=== PATIENT | male | born 1985 | race Caucasian/White ===

== ENCOUNTER 2018-01-17 17:11 | Emergency (ER) | payer OTHER ==
[~2018-01-17] VITALS: Ht 185.4 cm; Wt 90.7 kg
[2018-01-17 17:15] VITALS: BP 140/95
[2018-01-17] MEDS ORDERED: Sodium Chloride 500ML 500 ML IV ONE (17:21)
[2018-01-17 17:43] LABS: EOSINOPHILS % (AUTO) 1.4 % (0.0-3.0); HEMATOCRIT 40.2 % (42.0-52.0); HEMOGLOBIN 14.2 G/DL (14.2-18.0); LYMPHOCYTES % (AUTO) 35.2 % (20.0-45.0); MEAN CORPUSCULAR VOLUME 85 FL (80-99); NEUTROPHILS % (AUTO) 54.4 % (45.0-75.0); PLATELET COUNT 206 K/UL (150-450); RED BLOOD COUNT 4.74 M/UL (4.70-6.10); RED CELL DISTRIBUTION WIDTH 10.6 % (11.6-14.8); WHITE BLOOD COUNT 6.5 K/UL (4.8-10.8)
--- NOTE | 2018-01-17 17:46 | Emergency Room Report ---
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 Patient has had 2 episodes of atrial fibrillation including cardioversion with medication and also including electric cardioversion Patient is set for a another ablation in the of January At this time denies any chest pain denies any back or flank pain Patient was on Eliquis previously however not at this time Allergies: Coded Allergies: GRASS POLLEN (Verified Allergy, Mild, Hives, 01/17/18) Patient History Past Medical History: see triage record Pertinent Family History: none Reviewed Nursing Documentation: PMH: Agreed; PSxH: Agreed Nursing Documentation-PMH Past Medical History: No History, Except For Hx Cardiac Problems: Yes - WPW Review of Systems All Other Systems: negative except mentioned in HPI Physical Exam Vital Signs Date Time Temp Pulse Resp B/P (MAP) Pulse Ox O2 Delivery O2 Flow Rate FiO2 01/17/18 17:05 98.3 120 18 140/90 99 Room Air 98.2 Sp02 EP Interpretation: reviewed, normal General Appearance: well appearing, no apparent distress Head: normocephalic, atraumatic Eyes: bilateral eye PERRL, bilateral eye EOMI ENT: hearing grossly normal, normal pharynx, TMs + canals normal, uvula midline Neck: full range of motion, supple, no meningismus, no bony tend Respiratory: lungs clear, normal breath sounds, no rhonchi, no respiratory distress, no retraction, no accessory muscle use Cardiovascular #1: normal peripheral pulses, no edema, no gallop, no JVD, no murmur, irregularly irregular Gastrointestinal: normal bowel sounds, non tender, soft, no mass, no organomegaly, non-distended, no guarding, no hernia, no pulsatile mass, no rebound Genitourinary: no CVA tenderness Musculoskeletal: normal inspection Neurologic: oriented x3, responsive, 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 Guillen [phone] Patient remains appropriate on the vehicle monitor technician, heart rate ranges between 80 and 95 Patient remains asymptomatic at this time was given a dose of Eliquis After discussion with the patient's electro- housing manager, he recommends the patient initiated on xarelto/versus Eliquis And he will follow closely with him Given that the patient is rate controlled without any medication Given that he has had a history of atrial fibrillation Cardioversion is not indicated at this time Patient observed throughout his stay and at this time is disposition for close follow-up per recommendations Labs Test 01/17/18 17:29 White Blood Count 6.5 K/UL (4.8-10.8) Red Blood Count 4.74 M/UL (4.70-6.10) Hemoglobin 14.2 G/DL (14.2-18.0) Hematocrit 40.2 % (42.0-52.0) Mean Corpuscular Volume 85 FL (80-99) Mean Corpuscular Hemoglobin 30.1 PG (27.0-31.0) Mean Corpuscular Hemoglobin Concent 35.4 G/DL (32.0-36.0) Red Cell Distribution Width 10.6 % (11.6-14.8) Platelet Count 206 K/UL (150-450) Mean Platelet Volume 6.2 FL (6.5-10.1) Neutrophils (%) (Auto) 54.4 % (45.0-75.0) Lymphocytes (%) (Auto) 35.2 % (20.0-45.0) Monocytes (%) (Auto) 8.0 % (1.0-10.0) Eosinophils (%) (Auto) 1.4 % (0.0-3.0) Basophils (%) (Auto) 1.0 % (0.0-2.0) Prothrombin Time 10.5 SEC (9.30-11.50) Prothromb Time International Ratio 1.0 (0.9-1.1) Activated Partial Thromboplast Time 25 SEC (23-33) Sodium Level 142 MMOL/L (136-145) Potassium Level 3.4 MMOL/L (3.5-5.1) Chloride Level 105 MMOL/L (98-107) Carbon Dioxide Level 27 MMOL/L (21-32) Anion Gap 11 mmol/L (5-15) Blood Urea Nitrogen 12 mg/dL (7-18) Creatinine 1.2 MG/DL (0.55-1.30) Estimat Glomerular Filtration Rate > 60 mL/min (>60) Glucose Level 128 MG/DL (74-106) Calcium Level 8.8 MG/DL (8.5-10.1) Total Bilirubin 0.4 MG/DL (0.2-1.0) Aspartate Amino Transf (AST/SGOT) 12 U/L (15-37) Alanine Aminotransferase (ALT/SGPT) 26 U/L (12-78) Alkaline Phosphatase 60 U/L (46-116) Total Creatine Kinase 69 U/L (26-308) Creatine Kinase MB 0.6 NG/ML (0.0-3.6) Creatine Kinase MB Relative Index 0.8 Troponin I 0.000 ng/mL (0.000-0.056) Total Protein 7.5 G/DL (6.4-8.2) Albumin 4.2 G/DL (3.4-5.0) Globulin 3.3 g/dL Albumin/Globulin Ratio 1.3 (1.0-2.7) Lipase 232 U/L (73-393) EKG Diagnostic Results Rate: normal, other - Irregularly irregular Rhythm: other - Atrial fibrillation ST Segments: other - Atrial fibrillation Rhythm Strip Diag. Results EP Interpretation: yes Rate: 86 Rhythm: no PVC's, no ectopy, other - Irregularly irregular Chest X-Ray Diagnostic Results Chest X-Ray Diagnostic Results : Chest X-Ray Ordered: Yes # of Views/Limited/Complete: 1 View Indication: Chest Pain EP Interpretation: Yes Interpretation: no consolidation, no effusion, no pneumothorax Impression: No acute disease Electronically Signed by: Meet Davies DO Last Vital Signs Date Time Temp Pulse Resp B/P (MAP) Pulse Ox O2 Delivery O2 Flow Rate FiO2 01/17/18 17:15 98.2 109 18 140/95 99 Room Air 98.2 Status: improved Disposition: HOME, SELF-CARE Condition: Improved Scripts Rivaroxaban (XARELTO*) 10 Mg Tablet 10 MG ORAL DAILY, #10 TAB 0 Refills Prov: Meet Davies DO 01/17/18 Referrals: NOT CHOSEN [facility]/MD,REFERRING (PCP) Additional Instructions: Follow-up with Dr. Guillen in the next one to 2 days Meet Davies DO Jan 17, 2018 17:46
[2018-01-17] MEDS ORDERED: PEPTO-BISMOL262 M1 PO (17:47)
[2018-01-17] MEDS ORDERED: GAVISCON 80-141 EACH PO (17:47)
[2018-01-17] MEDS ORDERED: FLONASE ALLERG9.9 ML NS (17:47)
[2018-01-17 17:51] LABS: ANION GAP 11 mmol/L (5-15); BLOOD UREA NITROGEN 12 mg/dL (7-18); CALCIUM 8.8 MG/DL (8.5-10.1); CARBON DIOXIDE 27 MMOL/L (21-32); CHLORIDE 105 MMOL/L (98-107); CREATININE 1.2 MG/DL (0.55-1.30); POTASSIUM 3.4 MMOL/L (3.5-5.1); SODIUM 142 MMOL/L (136-145)
[2018-01-17] MEDS ORDERED: PHILLIPS' COLO1 EACH PO (17:54)
[2018-01-17] MEDS ORDERED: ZYRTEC10 MG ORAL (17:54)
[2018-01-17] MEDS ORDERED: Eliquis 2.5mg tablet ORAL ONE (18:00)
[2018-01-17 18:04] LABS: ALANINE AMINOTRANSFERASE 26 U/L (12-78); ALBUMIN 4.2 G/DL (3.4-5.0); ALBUMIN/GLOBULIN RATIO 1.3 (1.0-2.7); ALKALINE PHOSPHATASE 60 U/L (46-116); ASPARTATE AMINO TRANSFERASE 12 U/L (15-37); BILIRUBIN,TOTAL 0.4 MG/DL (0.2-1.0); CKMB 0.6 NG/ML (0.0-3.6); CREATINE KINASE 69 U/L (26-308)
[2018-01-17] MEDS ORDERED: XARELTO10 MG ORAL (18:51)
[2018-01-17 19:15] VITALS: BP 136/87
--- NOTE | 2018-01-18 10:23 | Diagnostic Imaging Report ---
Indication: Chest pain Technique: XRAY Chest 1v Comparison: None Findings: Heart size and mediastinal contours are within normal limits. There is no focal consolidation, pneumothorax or pleural effusion. Osseous structures demonstrate no acute abnormality. Impression: No radiographic evidence of acute cardiopulmonary disease.
== END 2018-01-17 19:15 | disposition home or self-care (01) ==
LOC: EDBD 17:11 → EMR 17:29 → EDBEDREQ 18:17 → CANBEDREQ 18:49 → EMR 19:15
DX: I48.91 Unspecified atrial fibrillation (principal); I45.6 Pre-excitation syndrome; Z91.048 Other nonmedicinal substance allergy status
CPT/HCPCS: 36415; 71045; 80053; 82550; 82553; 83690; 84484; 85025; 85610; 85730; 93005; 99284